=== PATIENT | male | born 1960 | race Caucasian/White ===

== ENCOUNTER 2017-09-01 08:44 | Emergency (ER) | payer BC ==
[~2017-09-01] VITALS: Ht 180.3 cm; Wt 97.7 kg
[2017-09-01 09:29] LABS: HEMATOCRIT 47.9 % (42.0-52.0); HEMOGLOBIN 16.4 g/dL (13.5-18.0); MEAN CELL VOLUME 85 fl (78-100); MEAN CORPUSCULAR HEMOGLOBIN 29 pg (27-31); MEAN CORPUSCULAR HGB CONC 34 g/dL (33-37); PLATELET COUNT 304 K/mm3 (130-400); RED BLOOD COUNT 5.65 M/mm3 (4.20-5.60); RED CELL DISTRIBUTION WIDTH 13.5 % (11.5-14.5); WHITE BLOOD COUNT 12.9 K/mm3 (4.8-10.8)
[2017-09-01 09:30] LABS: ALBUMIN 4.7 g/dL (3.5-5.0); BUN/CREATININE RATIO 14.9 (6.0-26.0); CALCIUM 9.8 mg/dL (8.4-10.2); POTASSIUM 3.6 mmol/L (3.6-5.0); TOTAL BILIRUBIN 1.2 mg/dL (0.2-1.3); TOTAL PROTEIN 8.2 g/dL (6.3-8.2)
[2017-09-01 09:41] LABS: BAND 3 % (0-10); LYMPHOCYTE 8 % (20-51); MONOCYTE 9 % (3-10); NEUTROPHILS 79 % (42-75)
[2017-09-01 10:42] LABS: URINE APPEARANCE CLEAR; URINE BILIRUBIN NEGATIVE (NEGATIVE); URINE BLOOD 250 ery/uL (NEGATIVE); URINE COLOR YELLOW; URINE GLUCOSE NEGATIVE (NEGATIVE); URINE KETONE 1+ (NEGATIVE); URINE LEUKOCYTE ESTERASE NEGATIVE (NEGATIVE); URINE NITRATE NEGATIVE (NEGATIVE); URINE PROTEIN(semi-quant) TRACE mg/dL (NEGATIVE); URINE UROBILINOGEN NORMAL (NORMAL); URINE WBC 0-1 /hpf (0-3)
[2017-09-01 10:43] LABS: URINE MUCUS PRESENT (NOT PRESENT)
[2017-09-01] MEDS ORDERED: PERCOCET 325 MG1 TA2 PO (11:36)
[2017-09-01] MEDS ORDERED: FLOMAX0.4 MG PO (11:36)
[2017-09-01] MEDS ORDERED: SEPTRA DS 8001 TAB PO (11:36)
[2017-09-01 11:42] VITALS: BP 141/78
== END 2017-09-01 11:54 | disposition home or self-care (01) ==
LOC: ED 08:44
PROVIDERS: Family Medicine
DX: N23 Unspecified renal colic (principal); R11.0 Nausea; M54.89 Other dorsalgia; Z90.49 Acquired absence of other specified parts of digestive tract; Z85.038 Personal history of other malignant neoplasm of large intestine
CPT/HCPCS: J0595; J1885; J7030

== ENCOUNTER 2020-07-30 10:27 | Emergency (ER) | payer BC ==
[~2020-07-30] VITALS: Ht 177.8 cm; Wt 108.2 kg
[~2020-07-30 10:27] MED LIST: FLOMAX0.4 MG PO; PERCOCET 325 MG1 TA2 PO; SEPTRA DS 8001 TAB PO
[2020-07-30 11:09] LABS: EOS # 0.1 (0.04-0.40); EOS % 1.7 % (0.0-4.0); HEMATOCRIT 48.5 % (42.0-52.0); HEMOGLOBIN 16.9 g/dL (13.5-18.0); LYMPH# 2.3 (1.50-4.00); MEAN CELL VOLUME 86 fl (78-100); MEAN CORPUSCULAR HEMOGLOBIN 30 pg (27-31); MEAN CORPUSCULAR HGB CONC 35 g/dL (33-37); MEAN PLATELET VOLUME 10.8 fl (7.4-10.4); MONO # 0.7 (0.20-0.80); NEU # 4.3 (1.40-6.50); PLATELET COUNT 281 K/mm3 (130-400); RED BLOOD COUNT 5.64 M/mm3 (4.20-5.60); RED CELL DISTRIBUTION WIDTH 13.4 % (11.5-14.5); WHITE BLOOD COUNT 7.5 K/mm3 (4.8-10.8)
[2020-07-30 11:12] LABS: ALBUMIN 4.6 g/dL (3.5-5.0)
[2020-07-30 11:13] LABS: POTASSIUM 4.1 mmol/L (3.5-5.1)
[2020-07-30 11:14] LABS: CALCIUM 9.5 mg/dL (8.3-10.5)
[2020-07-30 11:15] LABS: TOTAL PROTEIN 7.6 g/dL (6.4-8.3)
[2020-07-30 11:17] LABS: TOTAL BILIRUBIN 1.2 mg/dL (0.2-1.2)
[2020-07-30] MEDS ORDERED: METOPROLOL SUCC50 M1 PO (12:03)
[2020-07-30 12:23] VITALS: BP 148/85
== END 2020-07-30 12:16 | disposition home or self-care (01) ==
LOC: ED 10:27
PROVIDERS: Family Medicine
DX: I47.1 Supraventricular tachycardia (principal); Z87.442 Personal history of urinary calculi; Z90.49 Acquired absence of other specified parts of digestive tract
CPT/HCPCS: J0153

== ENCOUNTER → 2021-02-23 | Outpatient (CLI) | payer BC ==
[~2021-02-23] MED LIST changes: +METOPROLOL SUCC50 M1 PO
== END ==
LOC: RAD 18:54
DX: Q43.0 Meckel's diverticulum (displaced) (hypertrophic) (principal)
CPT/HCPCS: A9585